=== PATIENT | female | born 1975 | race Hispanic/Latino ===

== ENCOUNTER 2018-11-16 16:00 | Emergency (ER) | payer SELFPAY ==
--- NOTE | 2018-11-16 16:28 | RAD ---
RADIOGRAPH CHEST 1 VIEW: HISTORY: 43-year-old female with chest pain. FINDINGS: There are no air space densities, pulmonary edema, pneumothorax, or cardiomegaly. The lateral costop hrenic angles are sharp. IMPRESSION: No acute cardiopulmonary findings. jn POS: [facility]
[2018-11-16 18:03] LABS: #Eosinphils 0.2 thou/uL (0.0-0.7); #Monocytes 0.3 thou/uL (0.11-0.59); #Neutrophils 2.8 thou/uL (1.40-6.50); %Basophils 0.9 % (0.0-1.0); %Lymphocytes 36.7 % (21.0-51.0); %Monocytes 5.9 % (0.0-10.0); %Neutrophils 52.6 % (42.0-75.0); Hemoglobin 12.9 g/dL (12.0-16.0); Mean Corpuscular HGB CONC 31.6 g/dL (32.0-36.0); Mean Corpuscular Volume 91.9 fL (78.0-98.0); Platelet Count 306 thou/uL (130-400); Red Blood Cell (RBC) Count 4.44 mill/uL (4.20-5.40); White Blood Cell (WBC) Count 5.4 thou/uL (4.8-10.8)
[2018-11-16 18:17] LABS: ALT (SGPT) 23 U/L (8-55); AST (SGOT) 23 U/L (5-34); Albumin 4.4 g/dL (3.5-5.0); Alkaline Phosphatase 86 U/L (40-150); Anion Gap 14 mmol/L (10-20); BUN (Urea Nitrogen) 16 mg/dL (7.0-18.7); Bilirubin, Total 0.5 mg/dL (0.2-1.2); CK (CPK) 137 U/L (29-168); Calc. Creatinine Clearance 0 mL/min (70-130); Calcium 9.2 mg/dL (7.8-10.44); Carbon Dioxide 20 mmol/L (22-29); Chloride 106 mmol/L (98-107); Estimated GFR-MDRD 87; Globulin 3.6 g/dL (2.4-3.5); Glucose 84 mg/dL (70-105); Lipase 20 U/L (8-78); Potassium 3.7 mmol/L (3.5-5.1); Sodium 136 mmol/L (136-145)
[2018-11-16] MEDS ORDERED: Ketorolac Tromethamine 60 MG/2 ML VIAL ONE (19:11)
--- NOTE | 2018-11-19 17:34 | EKG ---
Test Reason : Blood Pressure : / mmHG Vent. Rate : 063 BPM Atrial Rate : 063 BPM P-R Int : 180 ms QRS Dur : 060 ms QT Int : 378 ms P-R-T Axes : 000 019 006 degrees QTc Int : 386 ms Normal sinus rhythm Normal ECG Confirmed by SHIRA SNIDER, RAMSES Moscoso ([id number]), state editor VERITO GIPSON ([id number]) on 11/19/2018 5:34:21 PM Referred By: Confirmed By:RAMSES SILVA MD
== END 2018-11-16 19:43 | disposition home or self-care (01) ==
LOC: ERS 16:00
DX: M94.0 Chondrocostal junction syndrome [Tietze] (principal); F41.9 Anxiety disorder, unspecified; Z79.899 Other long term (current) drug therapy
CPT/HCPCS: 36415; 71045; 80053; 82550; 83690; 84484; 85025; 93005; 94760; 96372; J1885

== ENCOUNTER 2020-07-17 08:05 | Outpatient (CLI) | payer OTHER ==
--- NOTE | 2020-07-17 09:01 | MMO ---
Bilateral MAMMO Bilat Screen [facility]. CLINICAL HISTORY: Patient is 44 years old and is seen for screening. The patient has no family history of breast cancer. The patient has no personal history of cancer. VIEWS: The views performed were: bilateral craniocaudal with tomosynthesis and bilateral mediolateral oblique with tomosynthesis. This study has been interpreted with the assistance of computer-aided detection. MAMMOGRAM FINDINGS: There are scattered fibroglandular densities. There are no suspicious masses, suspicious calcifications, or new areas of architectural distortion. IMPRESSION: THERE IS NO MAMMOGRAPHIC EVIDENCE OF MALIGNANCY. A ROUTINE FOLLOW-UP MAMMOGRAM IN 1 YEAR IS RECOMMENDED. THE RESULTS OF THIS EXAM WERE SENT TO THE PATIENT. ACR BI-RADS Category 1 - Negative MAMMOGRAPHY NOTE: 1. A negative mammogram report should not delay a biopsy if a dominant of clinically suspicious mass is present. 2. Approximately 10% to 15% of breast cancers are not detected by mammography. 3. Adenosis and dense breasts may obscure an underlying neoplasm. Reported by: KATE STEARNS MD Electonically Signed: [id number]
== END 2020-07-17 08:06 | disposition home or self-care (01) ==
LOC: BICMAMMO 08:05
PROVIDERS: ATTEND Physician Assistant
DX: Z12.31 Encounter for screening mammogram for malignant neoplasm of breast (principal)
CPT/HCPCS: 77063; 77067

== ENCOUNTER 2020-11-06 15:46 | Emergency (ER) | payer SELFPAY ==
[2020-11-06 16:53] LABS: #Eosinphils 0.3 thou/uL (0.0-0.7); #Lymphocytes 2.1 thou/uL (1.20-3.40); #Monocytes 0.5 thou/uL (0.11-0.59); #Neutrophils 3.2 thou/uL (1.40-6.50); %Basophils 0.6 % (0.0-1.0); %Eosinophils 5.2 % (0.0-10.0); %Lymphocytes 34.6 % (21.0-51.0); %Monocytes 7.2 % (0.0-10.0); %Neutrophils 52.4 % (42.0-75.0); Hemoglobin 10.9 g/dL (12.0-16.0); Mean Corpuscular HGB CONC 32.5 g/dL (32.0-36.0); Mean Corpuscular Hemoglobin 27.7 pg (27.0-31.0); Mean Corpuscular Volume 85.2 fL (78.0-98.0); Mean Platelet Volume 8.2 fL (7.4-10.4); Platelet Count 298 thou/uL (130-400); RBC Distribution Width 13.5 % (11.5-14.5); Red Blood Cell (RBC) Count 3.92 mill/uL (4.20-5.40); White Blood Cell (WBC) Count 6.2 thou/uL (4.8-10.8)
[2020-11-06 17:03] LABS: BHCG - Serum Negative (NEGATIVE); Pregs Control Background? CLEAR/WHITE (CLR/WHITE); Pregs Control Bar Appear? YES (CONTROL BAR)
[2020-11-06 17:45] LABS: ALT (SGPT) 16 U/L (8-55); AST (SGOT) 17 U/L (5-34); Albumin 3.8 g/dL (3.5-5.0); Alkaline Phosphatase 96 U/L (40-110); Anion Gap 12 mmol/L (10-20); BUN (Urea Nitrogen) 12 mg/dL (7.0-18.7); Bilirubin, Total 0.3 mg/dL (0.2-1.2); Calc. Creatinine Clearance 0 mL/min (70-130); Calcium 8.8 mg/dL (7.8-10.44); Carbon Dioxide 26 mmol/L (22-29); Chloride 107 mmol/L (98-107); Globulin 3.5 g/dL (2.4-3.5); Glucose 85 mg/dL (70-105); Potassium 3.7 mmol/L (3.5-5.1); Protein, Total 7.3 g/dL (6.0-8.3); Sodium 141 mmol/L (136-145)
[2020-11-06] MEDS ORDERED: Ketorolac Tromethamine 30 MG/ML VIAL ONE (18:20)
== END 2020-11-06 18:49 | disposition home or self-care (01) ==
LOC: ERS 15:46
DX: N95.9 Unspecified menopausal and perimenopausal disorder (principal); N93.9 Abnormal uterine and vaginal bleeding, unspecified
CPT/HCPCS: 36415; 80053; 84703; 85025; 96372; 99284; J1885

== ENCOUNTER 2023-05-23 18:43 | Observation (INO) | payer SELFPAY ==
[~2023-05-23 18:43] MED LIST: Iopamidol-370 76% 500 ML MDV (1 ML CHARGE) ONE
[2023-05-23 19:27] LABS: #Eosinphils 0.3 thou/uL (0.0-0.7); #Monocytes 0.5 thou/uL (0.11-0.59); #Neutrophils 3.5 thou/uL (1.40-6.50); %Basophils 0.4 % (0.0-1.0); %Eosinophils 4.2 % (0.0-10.0); %Monocytes 7.3 % (0.0-10.0); %Neutrophils 50.8 % (42.0-75.0); Hematocrit 34.5 % (36.0-47.0); Hemoglobin 10.4 g/dL (12.0-16.0); Mean Corpuscular HGB CONC 30.1 g/dL (32.0-36.0); Mean Corpuscular Hemoglobin 23.5 pg (27.0-31.0); Mean Corpuscular Volume 77.9 fl (78.0-98.0); Mean Platelet Volume 10.1 fL (7.4-10.4); Platelet Count 362 10x3/uL (130-400); RBC Distribution Width 16.4 % (11.5-14.5); Red Blood Cell (RBC) Count 4.43 mill/uL (4.20-5.40)
[2023-05-23 19:51] LABS: ALT (SGPT) 18 U/L (8-55); AST (SGOT) 18 U/L (5-34); Albumin 4.3 g/dL (3.5-5.0); Alkaline Phosphatase 76 U/L (40-110); Anion Gap 14 mmol/L (10-20); BUN (Urea Nitrogen) 12 mg/dL (7.0-18.7); Bilirubin, Total 0.3 mg/dL (0.2-1.2); Calc. Creatinine Clearance 0 mL/min (70-130); Calcium 9.8 mg/dL (7.8-10.44); Carbon Dioxide 24 mmol/L (22-29); Chloride 102 mmol/L (98-107); Estimated GFR 98; Globulin 3.7 g/dL (2.4-3.5); Glucose 94 mg/dL (70-105); Lipase 42 U/L (8-78); Potassium 3.6 mmol/L (3.5-5.1); Sodium 136 mmol/L (136-145)
[2023-05-23 20:53] LABS: Bacteria/HPF None Seen HPF (None Seen); Bilirubin Negative (Negative); Blood, Urine Trace (Negative); CAUTI Indications for Culture Acute Hematuria; Clarity Clear (Clear); Glucose, Urine (Dipstick) Normal (Negative); Ketone, Urine Negative (Negative); Leukocyte Negative Leu/uL (Negative); Nitrite Negative (Negative); Protein, Urine (Dipstick) 10 mg/dL (Neg-Trace); RBC/HPF 0-3 HPF (0-3); Specific Gravity, Urine 1.023 (1.002-1.036); Urobilinogen Normal mg/dL (Less than 2); WBC/HPF 0-3 HPF (0-3); pH, Urine 5.5 (5.0-9.0)
[2023-05-23 20:54] LABS: Urine Culture Reflex No No
[2023-05-23] MEDS ORDERED: Ondansetron PF 4 MG/2 ML Vial ONE ×2 (20:59→22:36)
[2023-05-23] MEDS ORDERED: Morphine 4 MG/ML VIAL ONE (20:59)
[2023-05-23] MEDS ORDERED: Bupivacaine 0.25% HCL 30 ML VIAL ONE (21:46)
[2023-05-23] MEDS ORDERED: EPINEPHrine 1 MG/ML AMP ONE (21:46)
[2023-05-23] MEDS ORDERED: Fentanyl 250 MCG/5 ML VIAL ONE (22:02)
[2023-05-23] MEDS ORDERED: Ondansetron PF 4 MG/2 ML Vial IVP PRN (22:06)
[2023-05-23] MEDS ORDERED: traMADol HCl 50 MG TAB PO PRN (22:06)
[2023-05-23] MEDS ORDERED: NEOSTIGMINE 3 MG/3 ML SYR 3 MG/3 ML SYRINGE ONE (22:36)
[2023-05-23] MEDS ORDERED: Lidocaine 1% PF 5 ML VIAL ONE (22:36)
[2023-05-23] MEDS ORDERED: Albuterol HFA (OR) 200 PUFF INH ONE (22:36)
[2023-05-23] MEDS ORDERED: Dexamethasone 20 MG/5 ML VIAL ONE (22:36)
[2023-05-23] MEDS ORDERED: Succinylcholine 200 MG/10 ml SYRINGE FS ONE (22:36)
[2023-05-23] MEDS ORDERED: Vecuronium 10 MG VIAL ONE (22:36)
[2023-05-23] MEDS ORDERED: Ketorolac Tromethamine 30 MG/ML VIAL ONE (22:36)
[2023-05-23] MEDS ORDERED: Glycopyrrolate 0.2 MG/ML 5 ML SYRINGE ONE (22:36)
[2023-05-23] MEDS ORDERED: PROPOFOL 200 MG/20 ML VIAL ONE (22:36)
[2023-05-23] MEDS ORDERED: Promethazine HCl 25 MG/ML VIAL IM PRN (23:55)
[2023-05-23] MEDS ORDERED: HYDROmorphone 2 MG/ML VIAL SLOW IVP PRN (23:55)
[2023-05-23] MEDS ORDERED: Ondansetron HCl/PF 4 MG/2 ML Vial IVP PRN (23:55)
[2023-05-23] MEDS ORDERED: PACU-Morphine 4MG/ML VIAL SLOW IVP PRN (23:55)
[2023-05-23] MEDS ORDERED: Morphine Sulfate 2 MG/ML SYRINGE SLOW IVP PRN (23:55)
[2023-05-24] MEDS ORDERED: fentaNYL 50 mcg/mL 1 mL Vial ONE (00:47)
[2023-05-24] MEDS: Acetaminophen 500 MG TAB PO SCH ×3 (01:38→11:42)
[2023-05-24 01:57] VITALS: BMI 40.4
[2023-05-24] MEDS: Ibuprofen 600 MG TAB PO PRN ×2 (08:29→17:38)
[2023-05-24 17:11] VITALS: BP 127/77; TEMP 98.1
== END 2023-05-24 19:33 | disposition home or self-care (01) ==
LOC: ERS 18:43 → SDC/OP 22:27 → SURG A 05-24 01:27
PROVIDERS: ADMIT Surgery; ATTEND Surgery
PROC: 0WUF0JZ Supplement Abdominal Wall with Synthetic Substitute, Open Approach (ICD-10-PCS; principal; 2023-05-24)
DX: K42.0 Umbilical hernia with obstruction, without gangrene (principal); I10 Essential (primary) hypertension; F41.8 Other specified anxiety disorders; K56.609 Unspecified intestinal obstruction, unspecified as to partial versus complete obstruction; Z88.0 Allergy status to penicillin; Z79.899 Other long term (current) drug therapy
CPT/HCPCS: 36415; 74177; 80053; 81001; 83605; 83690; 84702; 85025; 87040; 87076; 87086; 87149; 93005; 94760; 96374; 96375; G0378; J0171; J1100; J1650; J1885; J2270; J2405; J2704; J3010; Q9967; S0020

== ENCOUNTER 2025-08-14 10:48 | Outpatient (CLI) | payer OTHER | END 2025-08-14 10:49 | disposition home or self-care (01) | LOC: BICMAMMO 10:48 | PROVIDERS: ATTEND Obstetrics & Gynecology | DX: Z12.31 Encounter for screening mammogram for malignant neoplasm of breast (principal) | CPT/HCPCS: 77063; 77067 ==

== ENCOUNTER 2025-09-19 18:37 | Emergency (ER) | payer OTHER ==
[2025-09-19 19:27] LABS: #Basophils Less than 0.03 10x3/uL (0.0-0.2); #Eosinophils 0.22 10x3/uL (0.0-0.7); #Monocytes 0.53 10x3/uL (0.11-0.59); #Neutrophils 3.77 10x3/uL (1.40-6.50); %Basophils 0.3 % (0.0-1.0); %Eosinophils 3.0 % (0.0-10.0); %Lymphocytes 38.3 % (21.0-51.0); %Monocytes 7.2 % (0.0-10.0); %Neutrophils 50.9 % (42.0-75.0); Hematocrit 38.1 % (36.0-47.0); Hemoglobin 12.3 g/dL (12.0-16.0); Mean Corpuscular Hemoglobin 31.1 pg (27.0-31.0); Mean Corpuscular Volume 96.5 fL (78.0-98.0); Platelet Count 250 10x3/uL (130-400); Red Blood Cell (RBC) Count 3.95 mill/uL (4.20-5.40); White Blood Cell (WBC) Count 7.39 10x3/uL (4.8-10.8)
[2025-09-19 19:31] LABS: BHCG - Serum Negative (NEGATIVE); Pregs Control Background? CLEAR/WHITE (CLR/WHITE); Pregs Control Bar Appear? YES (CONTROL BAR)
[2025-09-19 19:38] LABS: Lipase 22 U/L (8-78)
[2025-09-19 19:40] LABS: ALT (SGPT) 15 U/L (Less than 34); AST (SGOT) 20 U/L (11-34); Albumin 3.8 g/dL (3.1-4.5); Alkaline Phosphatase 69 U/L (40-110); Anion Gap 12 mmol/L (10-20); BUN (Urea Nitrogen) 14 mg/dL (9.8-20.1); Bilirubin, Total 0.4 mg/dL (0.3-1.2); CK (CPK) 118 U/L (29-168); Calc. Creatinine Clearance 0 mL/min (70-130); Calcium 8.9 mg/dL (7.8-10.44); Carbon Dioxide 24 mmol/L (22-29); Chloride 109 mmol/L (98-107); Globulin 2.9 g/dL (2.4-3.5); Glucose 86 mg/dL (70-105); Potassium 3.3 mmol/L (3.5-5.1); Sodium 142 mmol/L (136-145)
[2025-09-19 19:41] LABS: Acetaminophen Less than 10 mcg/mL (Less than 10); Salicylate Less than 8.0 mg/dL (Less than 8.0)
[2025-09-19] MEDS ORDERED: Ondansetron PF 4 MG/2 ML Vial ONE (19:50)
[2025-09-19] MEDS ORDERED: Dexamethasone 10 MG/ML VIAL ONE (19:50)
[2025-09-19 20:24] LABS: CAUTI Indications for Culture Alt mental st,lethar; Glucose, Urine (Dipstick) Normal (Negative); Leukocyte 25 Leu/uL (Negative); Protein, Urine (Dipstick) Negative (Neg-Trace); RBC/HPF 0-3 HPF (0-3); Specific Gravity, Urine 1.015 (1.002-1.036); WBC/HPF 0-3 HPF (0-3)
[2025-09-19 20:28] LABS: Bacteria/HPF 1+ HPF (None Seen)
[2025-09-19 20:29] LABS: Urine Culture Reflex No No
[2025-09-19 20:31] LABS: Cocaine Metabolite Screen Negative (Negative); THC/Cannabinoid Screen Negative (Negative); Tricyclic Screen Negative (Negative)
== END 2025-09-19 21:09 | disposition home or self-care (01) ==
LOC: ERS 18:37
DX: R42 Dizziness and giddiness (principal); E86.0 Dehydration; N39.0 Urinary tract infection, site not specified
CPT/HCPCS: 36415; 70450; 71045; 80053; 80306; 80307; 81001; 82140; 82550; 83690; 84443; 84484; 84703; 85025; 93005; 96361; 96374; 96375; J1100; J2405